=== PATIENT | female | born 1940 | race Caucasian/White ===

== ENCOUNTER → 2018-02-16 | Outpatient (CLI) | payer MEDICARE, OTHER ==
[~2018-02-16] MED LIST: Antivert25 MG PO; FURO40 PO; HUMULIN 70100 UNIT/1 SQ; K-Dur20 MEQ PO; LEVSOD125 PO; LOSA50 PO; MECL25 PO; METO50ER PO; MOTION RELIEF25 MG PO; POTA10T PO; VALS80 PO
== END | disposition home or self-care (01) ==
LOC: LAB 15:50 → LAB SHORT 15:50
DX: E11.621 Type 2 diabetes mellitus with foot ulcer (principal); L97.509 Non-pressure chronic ulcer of other part of unspecified foot with unspecified severity
CPT/HCPCS: 87070; 87075; 87077; 87186; 87205

== ENCOUNTER 2018-04-29 13:15 | Observation (INO) | payer MEDICARE, OTHER ==
[~2018-04-29] VITALS: Ht 160 cm; Wt 105.0 kg
[2018-04-29 14:00] LABS: BASOPHILS ABSOLUTE AUTO 0.05 K/mm3 (0.00-0.23); BASOPHILS PERCENT AUTO 1 % (0-2); EOSINOPHILS ABSOLUTE AUTO 0.35 K/mm3 (0.00-0.68); EOSINOPHILS PERCENT AUTO 4 % (0-6); Hematocrit 38.7 % (33.0-51.0); Hemoglobin 12.4 g/dL (11.5-16.0); IMMATURE GRAN ABSOLUTE AUTO 0.03 K/mm3 (0.00-0.10); IMMATURE GRAN PERCENT AUTO 0 % (0-1); LYMPHOCYTES ABSOLUTE AUTO 2.32 K/mm3 (0.84-5.20); LYMPHOCYTES PERCENT AUTO 25 % (21-46); MONOCYTES ABSOLUTE AUTO 0.97 K/mm3 (0.16-1.47); MONOCYTES PERCENT AUTO 11 % (4-13); Mean Corpuscular HGB 32.4 pg (26.0-34.0); Mean Corpuscular Volume 101 fL (80-100); NEUTROPHILS ABSOLUTE AUTO 5.48 K/mm3 (1.96-9.15); NEUTROPHILS PERCENT AUTO 60 % (41-73); Platelet Count 168 K/mm3 (150-400); RDW Coefficient Variation 13.6 % (11.7-14.2); RDW Standard Deviation 50.9 fL (35.1-46.3); Red Blood Cell Count 3.83 M/mm3 (3.80-5.20)
[2018-04-29 14:02] LABS: Mean Platelet Volume 14.5 fL (9.1-12.4)
[2018-04-29 14:47] LABS: Alanine Aminotransfer (ALT/SGP 16 U/L (12-78); Albumin, Blood 3.3 g/dL (3.4-5.0); Albumin/Globulin Ratio 0.9 (0.8-1.8); Alk Phos 41 U/L (50-136); Anion Gap 9 mmol/L (6-16); Aspartate Aminotrans (AST/SGOT 20 U/L (12-37); Bilirubin, Total 0.4 mg/dL (0.1-1.0); Blood Urea Nitrogen 75 mg/dL (8-24); Bun/Creatinine Ratio 40.1 (12.0-20.0); CO2, Blood 29 mmol/L (21-32); Calcium, Blood 8.7 mg/dL (8.5-10.1); Chloride, Blood 105 mmol/L (98-108); Creatinine, Blood 1.87 mg/dL (0.40-1.00); Globulin, Blood 3.7 g/dL (2.2-4.0); Glomerular Filtration Rate 28 (60-); Glucose, Blood 28 mg/dL (70-99); Sodium, Blood 143 mmol/L (136-145)
[2018-04-29 14:49] LABS: Troponin I <0.015 ng/mL (0.000-0.040)
[2018-04-30 05:08] LABS: Hematocrit 38.7 % (33.0-51.0); Hemoglobin 12.5 g/dL (11.5-16.0)
[2018-04-30 05:42] LABS: Bun/Creatinine Ratio 38.8 (12.0-20.0); Calcium, Blood 9.1 mg/dL (8.5-10.1); Creatinine, Blood 1.88 mg/dL (0.40-1.00); Potassium, Blood 4.3 mmol/L (3.5-5.5)
[2018-04-30] MEDS ORDERED: METO25ER PO (14:07)
== END 2018-04-30 15:05 | disposition home health service (06) ==
LOC: ER 13:15 → MEDS 13:16 → ENPENDDIS 04-30 13:55 → MEDS 04-30 15:05
PROVIDERS: Emergency Medicine; Nurse Practitioner Acute Care
DX: R55 Syncope and collapse (principal); E11.42 Type 2 diabetes mellitus with diabetic polyneuropathy; I12.9 Hypertensive chronic kidney disease with stage 1 through stage 4 chronic kidney disease, or unspecified chronic kidney disease; E11.22 Type 2 diabetes mellitus with diabetic chronic kidney disease; N18.4 Chronic kidney disease, stage 4 (severe); I25.10 Atherosclerotic heart disease of native coronary artery without angina pectoris; E03.9 Hypothyroidism, unspecified; E11.649 Type 2 diabetes mellitus with hypoglycemia without coma; Z79.4 Long term (current) use of insulin
CPT/HCPCS: 36415; 70450; 71046; 80048; 80053; 82607; 82746; 82947; 83036; 83735; 83880; 84443; 84484; 85014; 85018; 85025; 93005; 93010; 96374; 97161; 97165; 97535; 99285-25; G0378; G8978; G8979; G8980; G8987; G8988; J1815

== ENCOUNTER 2018-09-11 03:53 | Inpatient (IN) | payer MEDICARE, OTHER ==
[~2018-09-11] VITALS: Ht 157.5 cm; Wt 103.0 kg
[~2018-09-11 03:53] MED LIST changes: +METO25ER PO
[2018-09-11 04:21] LABS: Source, Urine Catheter
[2018-09-11 04:23] LABS: Bilirubin, Urine Neg (Neg); Blood, Urine Neg (Neg); Glucose Qualitative, Urine Neg (Neg); Ketones, Urine Neg (Neg); Leukocyte Esterase, Urine Neg (Neg); Nitrite, Urine Neg (Neg); Protein, Urine Neg (Neg); Specific Gravity, Urine 1.015 (1.003-1.022); Urobilinogen, Urine NORM (Normal)
[2018-09-11 04:24] LABS: BASOPHILS ABSOLUTE AUTO 0.04 K/mm3 (0.00-0.23); BASOPHILS PERCENT AUTO 1 % (0-2); EOSINOPHILS ABSOLUTE AUTO 0.28 K/mm3 (0.00-0.68); EOSINOPHILS PERCENT AUTO 4 % (0-6); Hematocrit 37.2 % (33.0-51.0); Hemoglobin 11.6 g/dL (11.5-16.0); IMMATURE GRAN ABSOLUTE AUTO 0.02 K/mm3 (0.00-0.10); IMMATURE GRAN PERCENT AUTO 0 % (0-1); LYMPHOCYTES ABSOLUTE AUTO 1.89 K/mm3 (0.84-5.20); LYMPHOCYTES PERCENT AUTO 28 % (21-46); MONOCYTES ABSOLUTE AUTO 0.77 K/mm3 (0.16-1.47); MONOCYTES PERCENT AUTO 11 % (4-13); Mean Corpuscular HGB 32.7 pg (26.0-34.0); Mean Corpuscular HGB Conc 31.2 g/dL (31.5-36.5); Mean Corpuscular Volume 105 fL (80-100); NEUTROPHILS ABSOLUTE AUTO 3.87 K/mm3 (1.96-9.15); NEUTROPHILS PERCENT AUTO 56 % (41-73); NRBC ABSOLUTE 0.02 K/mm3 (0.00-0.02); NRBC Auto 0.3 /100 WBC (0.0-0.2); Platelet Count 141 K/mm3 (150-400); RDW Coefficient Variation 14.6 % (11.7-14.2); RDW Standard Deviation 56.5 fL (35.1-46.3); Red Blood Cell Count 3.55 M/mm3 (3.80-5.20); White Blood Cell Count 6.87 K/mm3 (4.00-11.30)
[2018-09-11 04:34] LABS: Appearance, Urine Clear (Clear); Color, Urine Yellow (P-Yellow)
[2018-09-11 04:47] LABS: Free Thyroxine 1.14 ng/dL (0.70-1.60); Troponin I <0.015 ng/mL (0.000-0.040)
[2018-09-11 04:51] LABS: Triiodothyronine, Free 1.88 pg/mL (2.18-3.98)
[2018-09-11 04:53] LABS: Alanine Aminotransfer (ALT/SGP 26 U/L (12-78); Albumin, Blood 3.4 g/dL (3.4-5.0); Albumin/Globulin Ratio 0.9 (0.8-1.8); Alk Phos 58 U/L (50-136); Anion Gap 7 mmol/L (6-16); Aspartate Aminotrans (AST/SGOT 22 U/L (12-37); Bilirubin, Total 0.2 mg/dL (0.1-1.0); Blood Urea Nitrogen 115 mg/dL (8-24); Bun/Creatinine Ratio 47.9 (12.0-20.0); CO2, Blood 27 mmol/L (21-32); Calcium, Blood 8.5 mg/dL (8.5-10.1); Chloride, Blood 111 mmol/L (98-108); Globulin, Blood 3.9 g/dL (2.2-4.0); Glomerular Filtration Rate 21 (60-); Glucose, Blood 21 mg/dL (70-99); Potassium, Blood 5.2 mmol/L (3.5-5.5); Sodium, Blood 145 mmol/L (136-145); Total Protein, Blood 7.3 g/dL (6.4-8.2)
--- NOTE | 2018-09-11 12:53 | NUR ---
0835: PT TO ICU 1 FROM ER, CARE ASSUMED. 0900: ASSESSMENT COMPLETED, PT AWAKE, A&OX4, PLEASANT AND COOPERATIVE. LS CTA, HR SINUS MARIA DE JESUS 50'S, OTHER VSS, BT+, LAST BM EARLY THIS MORNING. PT HAS BRUISING TO LATERAL LLE AND LEFT HIP, SKIN TEAR TO LEFT FA IS DRESSED WITH GUAZE DRESSING AND COBAN FROM ER. PT STATES SHE GOT THE SKIN TEAR DURING HER FALL THIS MORNING. PT REPOSITIONED IN BED, FEET ELEVATED ON PILLOWS, DENIES C/O AT THIS TIME. D5 0.45NS INFUSING AT 100ML/HR PER ORDERS. 1000: PT MEDICATED WITH TYLENOL FOR LEFT FLANK/LOW BACK PAIN, STATES PAIN IS NEW ONSET SINCE FALL THIS MORNING. PT TOLERATED MEDICATIONS WELL, DENIES OTHER NEEDS. 1145: PT ASSISTED TO USE BEDPAN TO VOID, THEN REPOSITIONED IN BED. CBG 144. BRUISES AND WOUND TO LEFT FA DOCUMENTED, SEE PICTURES. SKIN TEAR TO LEFT FA RE-DRESSED WITH ABX OINTMENT, TELFA, KERLIX AND TAPE. PT ASSISTED TO SIT UP IN BED, IS WATCHING TV, REMAINS A&OX4 AND APPROPRIATE. 1200: PT EATING LUNCH, TOLERATING WELL, DENIES NEEDS.
--- NOTE | 2018-09-11 14:00 | NUR ---
Patient watching TV. Review of her needs and symptoms and advance care planning. Pt states he does not have headaches or dyspnea. She does have buzzing in ears frequently and poor blance at time. She walks with a walker and still drives but less active. She at on license of [facility] has trouble swallowing, moderate appetitie recent difficulties with loose stools. She states her glucose monitor does not work well and she chaecks it once a day. She feesl she often has low blood sugar. She has some hip and low back pain. Denies pain to feet. pt lives alone in her own home. She has a 14 year old dog and fears the dog will not last much longer. She used to volunteer with a literacy program and has stopped due to using walker more. She has two sons on [place] and calls twice a month. The other lives locally and minimal contact he has issues with drinking and has been in correction. She relies on her best friend across the street who cannot see her as much because her is sick with end stage cancer. She is independent in her ADLS. She denies financial stress, States she has minimal support but ok. We reviewed AD, POA and reyes and decision making. Theraputic onversation about volunteering for [employer] and and getting out more. We discussed briefly diabetic acare and reanal disease and startegies. Field Clinical Engineer consult planced to help with teaching and to see if she can get a new meter. We discussed future care and a stragic plan for eventually selling her house and going to live with more support and social care. He passed and she has been in the house since 1974. pt high risk for falls and decline and readmission. reviewed strategies for future and being proactive. pt was receptive. will follow up with AD and diabetic care.
--- NOTE | 2018-09-11 15:27 | NUR ---
1330: DR. GOODEN IN TO SEE PT, PT STATUS CHANGED TO MEDICAL. PALLIATIVE CARE AT BEDSIDE WITH PT. 1445: CARDIAC MONITORING DC'D, NS INFUSING PER ORDERS. PT RESTING IN BED WATCHING TV, DENIES NEEDS OR C/O AT THIS TIME. REMAINS ALERT AND ORIENTED X4. 1505: DR. LINDSEY CALLED FOR NEPHROLOGY CONSULT, NEW ORDERS RECIEVED.
--- NOTE | 2018-09-11 17:32 | NUR ---
1700: RENAL AND BLADDER US COMPLETED, US SHOWS 750ML IN BLADDER. PT UP TO BR, 250ML URINE OUT. DR. LINDSEY IN TO SEE PT, NEW ORDERS RECIEVED. 1730: BOUCHER INSERTED PER ORDERS, 700ML OUT. SECOND IV INSERTED FOR REPEATED OCCLUSIONS. PT SITTING UP IN BED EATING DINNER, REPORTS LEFT SIDE PAIN 10/10 WITH MOVMENT, MEDICATED WITH TYLENOL PER ORDERS, DENIES OTHER NEEDS AT THIS TIME.
[2018-09-11 17:59] LABS: Source, Urine Catheter
[2018-09-11 18:02] LABS: Bilirubin, Urine Neg (Neg); Blood, Urine Neg (Neg); Color, Urine Yellow (P-Yellow); Glucose Qualitative, Urine Neg (Neg); Ketones, Urine Neg (Neg); Leukocyte Esterase, Urine Neg (Neg); Nitrite, Urine Neg (Neg); Protein, Urine Neg (Neg); Urobilinogen, Urine NORM (Normal)
[2018-09-11 18:16] LABS: Appearance, Urine Clear (Clear)
--- NOTE | 2018-09-11 18:34 | NUR ---
183: PT FINISHED DINNER WITHOUT DIFFICULTY, APPETITE GOOD. BOUCHER PATENT AND DRAINING TO GRAVITY, GOOD OUTPUT. PT DENIES BLADDER FULLNESS AT THIS TIME. VSS, REPORT TO ONCOMING SHIFT.
--- NOTE | 2018-09-11 19:15 | NUR ---
ASSUMED PT CARE PT SITTING UP IN BED WATCHING T.V. CALL LIGHT IN REACH. BEDSIDE TABLE IN REACH. NS INFUSING AT 75MLS/HR VIA 20G IN RIGHT HAND. NO C/O PAIN OR DISCOMFORT. PT DOES NOT APPEAR TO BE IN ANY DISTRESS AT THIS TIME.
[2018-09-12 03:37] LABS: Hemoglobin 10.7 g/dL (11.5-16.0)
[2018-09-12 03:53] LABS: Magnesium, Blood 2.8 mg/dL (1.6-2.4)
[2018-09-12 04:06] LABS: Anion Gap 6 mmol/L (6-16); Blood Urea Nitrogen 93 mg/dL (8-24); Bun/Creatinine Ratio 45.8 (12.0-20.0); CO2, Blood 25 mmol/L (21-32); Calcium, Blood 8.4 mg/dL (8.5-10.1); Chloride, Blood 114 mmol/L (98-108); Creatinine, Blood 2.03 mg/dL (0.40-1.00); Glomerular Filtration Rate 25 (60-); Glucose, Blood 172 mg/dL (70-99); Phosphorus, Blood 4.4 mg/dL (2.5-4.9); Sodium, Blood 145 mmol/L (136-145)
--- NOTE | 2018-09-12 04:33 | NUR ---
EKG NEW ORDERS FOR STAT EKG D/T CRITICALLY ELEVATED POTASSIUM OF 6.0. DR. NATARAJAN TO COME EVALUATE EKG.
--- NOTE | 2018-09-12 05:16 | NUR ---
END OF SHIFT SUMMARY PT HAS BEEN PLEASANT AND COOPERATIVE T/O ENTIRE SHIFT. SHE HAS DECLINED REPOSITIONING EACH TIME IT WAS OFFERED; STATED "IT HURT TO TURN". PILLOWS PLACED FOR COMFORT UNDER EXTREMITIES. NS INFUSING VIA 20G TO RIGHT HAND AT 75MLS/HR. D/C'D 20G TO RIGHT AC SECONDARY TO IT INFILTRATING. CRITICAL LAB VALUE OF POTASSIUM 6.[address] NATARAJAN WHO ORDERED A STAT EKG; UPON F/U ON READING EKG WITH NO SIGNIFICANT CHANGES DR. NATARAJAN ORDERED ONE AMP OF D50 WITH 8 UNITS OF REGULAR INSULIN GIVEN IV. PT TOLERATED BOTH INJECTIONS WELL WITH NO C/O BURNING AT SITE. PT IS COMFORTABLE WITH NO C/O PAIN AT THIS TIME.
--- NOTE | 2018-09-12 09:46 | NUR ---
0715: CARE ASSUMED, ASSESSMENT COMPLETED. CBG 113, HR IRREGULAR, LS CTA, BT+, EDEMA TO LE'S IMPROVING. PT A&OX4, APPROPRIATE AND PLEASANT. BOUCHER PATENT AND DRAINING TO GRAVITY. LE'S ELEVATED ON PILLOW, NS INFUSING 75ML/HR PER ORDERS. PT REPORTS LEFT LOWER BACK, LEFT SIDE OF TORSO, AND LEFT JAW PAIN 8/10, DENIES CHEST PAIN/PRESSURE, OR SOB. STATES JAW PAIN ONLY PRESENT WHEN SHE OPENS HER MOUTH WIDE, BELIEVES SHE HIT HER JAW WHEN SHE FELL. DR GOODEN AT BEDSIDE TO ASSESS. TYLENOL ADMINISTERED FOR PAIN. 0900: PT FINISHED BREAKFAST WITHOUT DIFFICULTY, AM MEDS ADMINISTERED. PT ASSISTED INTO CHAIR, DENIES NEEDS AT THIS TIME. 0940: POTASSIUM RESULT CALLED TO DR. GOODEN, NEW ORDERS RECEIVED. PT REMAINS UP IN CHAIR TALKING ON PHONE.
--- NOTE | 2018-09-12 10:37 | NUR ---
1035: DR. LINDSEY AWARE OF POTASSIUM LEVEL AND KAYEXELATE ORDER, NO NEW ORDERS RECEIVED AT THIS TIME. KAYEXELATE GIVEN, BED BATH COMPLETED, REPORT CALLED TO CANDIE, MEDICAL FLOOR NURSE. PT TO ROOM 356 AT THIS TIME VIA WC WITH NO C/O OR DIFFICULTIES.
--- NOTE | 2018-09-12 15:56 | NUR ---
POTASSIUM READ BACK FROM LAB AT A CRITICAL HIGH. PATIENT CURRENTLY 6.[address] GOODEN HAS BEEN NOTIFIED AND SO HAS DR. LINDSEY. DR. GOODEN HAD ORDERED THE SECOND POTASSIUM THIS AFTERNOON POST DOSE OF KAYEXALATE. PATIENT HAS NOT HAD A BOWEL MOVEMENT SINCE SHE HAS BEEN BROUGHT TO THE FLOOR. THE PATIENT IS ALERT AND ORIENTED. AWAITING THE LAB TO DRAW PLASMA POTASSIUM FOR THE PATIENT BEFORE GIVING KAYEXALATE. WILL MONITOR FOR CHANGES.
--- NOTE | 2018-09-12 18:29 | NUR ---
SHIFT SUMMARY PATIENT FROM THE ICU TODAY. SHE IS IPA. NO PAIN MINUS CHRONIC PAINS. SHE HAS GOTTEN UP WITH PHYSICAL THERAPY. SHE HAD A CRITICAL POTASSIUM THIS AM PRIOR TO TRANSFER AT 6.0. SHE WAS GIVEN A DOSE OF KAYEXALATE UNSURE OF THE OUTCOME. POTASSIUM WAS RECHECKED AND WAS 5.8. THIRD POTASSIUM SCHEDULED FOR 1400. THIS POTASSIUM CAME OUT A CRITICAL HIGH WELL AT 6.0. DR. LINDSEY AND DR. GEORGE WERE NOTIFIED. PATIENT HAD STAT PLASMA POTASSIUM DRAWN WHICH CAME BACK A CRITICAL HIGH OF 6.3 AND WAS GIVEN 30G KAYEXALATE PER DR. GOODEN, AND 1 AMP D50, 10 UNITS IV INSULIN PUSH, AND [address] LINDSEY[address] BOTH DOCTORS ARE AWARE OF THE FULL TREATMENTS GIVEN. PATIENT HAS TAKEN KAYEXALATE, ALL TREATMENTS HAVE BEEN GIVEN. STAT POTASSIUM WAS DRAWN AT 1830, AWAITING RESULTS AT THIS TIME. WILL CALL DR. LINDSEY WITH RESULTS. AWAITING PATIENT CONCERNS. PATIENT ALERT AND ORIENTED, NO ACUTE CHANGES WITH PATIENT SYMPTOMS.
[2018-09-12 18:49] LABS: Bun/Creatinine Ratio 39.1 (12.0-20.0); Calcium, Blood 8.5 mg/dL (8.5-10.1); Creatinine, Blood 2.07 mg/dL (0.40-1.00); Potassium, Blood 5.2 mmol/L (3.5-5.5)
--- NOTE | 2018-09-13 05:11 | NUR ---
SHIFT SUMMARY A/O X4, ABLE TO MAKE NEEDS KNOWN. COOPERATIVE WITH CARE. ANSWERS QUESTIONS APPROPRIATELY. UP TO CHAIR FOR MEALS. AMBULATES WITH 1 ASSIST. C/O PAIN/DISCOMFORT RATED 8/10 TO L SIDE SECONDARY TO FALL AT HOME; MEDICATED PER EMAR. APPEARED TO REST MUCH OF NIGHT. VSS/AFEBRILE. NO ACUTE CHANGES NOTED OVERNIGHT. BED IN LOWEST POSITION. CALL LIGHT AND BELONGINGS WITHIN REACH. WCTM. REPORT TO ONCOMING RN.
[2018-09-13 05:18] LABS: Hematocrit 33.4 % (33.0-51.0); Hemoglobin 10.4 g/dL (11.5-16.0)
[2018-09-13 05:38] LABS: Anion Gap 6 mmol/L (6-16); Blood Urea Nitrogen 78 mg/dL (8-24); Bun/Creatinine Ratio 41.5 (12.0-20.0); CO2, Blood 25 mmol/L (21-32); Calcium, Blood 8.2 mg/dL (8.5-10.1); Chloride, Blood 114 mmol/L (98-108); Creatinine, Blood 1.88 mg/dL (0.40-1.00); Glomerular Filtration Rate 27 (60-); Glucose, Blood 197 mg/dL (70-99); Magnesium, Blood 2.6 mg/dL (1.6-2.4); Phosphorus, Blood 3.7 mg/dL (2.5-4.9); Potassium, Blood 5.6 mmol/L (3.5-5.5); Sodium, Blood 145 mmol/L (136-145)
--- NOTE | 2018-09-13 07:28 | NUR ---
PER VERBAL ORDERS FROM DR LINDSEY 40 MG IV LASIX GIVEN AND IVF RATE DECREASED TO 50 ML/HR. IVF BAG NOT CHANGED AT THIS TIME, CURRENT IVF CONTINUED WITH THE DECREASED RATE.
--- NOTE | 2018-09-13 17:47 | NUR ---
NO ACUTE CHANGES. PT WITH SERIAL POTASSIUM LABS Q6H X6, SEE LAB RESULTS IN CHART. NO C/O PAIN/DISCOMFORT OR N/V. WILL CONTINUE TO MONITOR AND REPORT TO ONCOMING RN.
--- NOTE | 2018-09-14 00:03 | NUR ---
09/13/181943 PT LYING IN BED, REPORTS L SIDE PAIN, REQUESTED AND RECIEVED TYLENOL, WILL EVAL FOR EFFECT. PT HAS TREMORS IN HANDS THAT SHE STATES IS NORMAL FOR HER. NO OTHER APPARENT SIGNS OF DISTRESS. CALL LIGHT IS IN REACH.
--- NOTE | 2018-09-14 01:12 | NUR ---
0000 PT LYING IN BED, EYES CLOSED, APPEARS TO BE RESTING. BREATHING IS EVEN, UNLABORED. NO APPARENT SIGNS OF DISTRESS. CALL LIGHT IS IN REACH.
--- NOTE | 2018-09-14 02:01 | NUR ---
PT LYING IN BED, AWAKE, NO APPARENT SIGNS OF DISTRESS. CALL LIGHT IS IN REACH.
--- NOTE | 2018-09-14 03:37 | NUR ---
PT LYING IN BED, EYES CLOSED, APPEARS TO BE RESTING. BREATHING IS EVEN, UNLABORED. NO APPARENT SIGNS OF DISTRESS. CALL LIGHT IS IN REACH.
--- NOTE | 2018-09-14 04:10 | NUR ---
PT IS AAO X 4, ON RA. REPORTS PAIN IN L SIDE, GOT TYLENOL AT HS. TELE NSR WITH OCC PVC'S AND 1ST DEGREE AV BLOCK. BS WAS 237. SANDER. [facility] [place] ARM. KPAD IN ROOM, MAY HAVE ICE PACK IF NEEDED.
[2018-09-14 04:46] LABS: Hematocrit 32.3 % (33.0-51.0); Hemoglobin 10.2 g/dL (11.5-16.0)
[2018-09-14 04:57] LABS: Albumin, Blood 2.9 g/dL (3.4-5.0); Anion Gap 7 mmol/L (6-16); Blood Urea Nitrogen 64 mg/dL (8-24); Bun/Creatinine Ratio 33.7 (12.0-20.0); CO2, Blood 26 mmol/L (21-32); Calcium, Blood 8.4 mg/dL (8.5-10.1); Chloride, Blood 115 mmol/L (98-108); Glomerular Filtration Rate 27 (60-); Glucose, Blood 203 mg/dL (70-99); Magnesium, Blood 2.3 mg/dL (1.6-2.4); Phosphorus, Blood 3.5 mg/dL (2.5-4.9); Potassium, Blood 4.8 mmol/L (3.5-5.5); Sodium, Blood 148 mmol/L (136-145)
[2018-09-14 06:48] LABS: Uric Acid, Blood 7.8 mg/dL (2.6-6.0)
--- NOTE | 2018-09-14 07:31 | NUR ---
0642 PT LYING IN BED, EYES CLOSED, APPEARS TO BE RESTING. BREATHING IS EVEN, UNLABORED. NO APPARENT SIGNS OF DISTRESS. CALL LIGHT IS IN REACH. NO OTHER CHANGES THIS SHIFT.
--- NOTE | 2018-09-14 18:25 | NUR ---
SUMMARY- PT ALERT AND ORIENTED. SAT UP IN CHAIR MOST OF THE DAY, TOLERATING FOOD AND FLUIDS. GIVEN SENEKOT IN ADDITION TO MIRALAX, LAST BM BEFORE DC 09/11. TELE REVEALS SR WITH 1 AVB AND OCC PVC, ALSO A NEW PAUSE PRESENT, NOT AFFECTING THE RATE. NOTIFIED DR GOODEN WHO VISUALIZED TELE PRINTOUT 1050. NO INTERVENTIONS FOR THIS CHANGE. PT DENIES PAIN, AND NEEDED TO PRN'S. IVF INFUSING. BOUCHER DRAINING MED CLEAR YELLOW. WILL REPORT TO NIGHTS.
[2018-09-15 04:52] LABS: Hematocrit 31.6 % (33.0-51.0); Hemoglobin 9.9 g/dL (11.5-16.0)
[2018-09-15 05:14] LABS: Albumin, Blood 2.7 g/dL (3.4-5.0); Anion Gap 5 mmol/L (6-16); Blood Urea Nitrogen 53 mg/dL (8-24); Bun/Creatinine Ratio 30.6 (12.0-20.0); CO2, Blood 28 mmol/L (21-32); Calcium, Blood 8.5 mg/dL (8.5-10.1); Chloride, Blood 114 mmol/L (98-108); Creatinine, Blood 1.73 mg/dL (0.40-1.00); Glomerular Filtration Rate 30 (60-); Glucose, Blood 173 mg/dL (70-99); Magnesium, Blood 2.4 mg/dL (1.6-2.4); Phosphorus, Blood 2.9 mg/dL (2.5-4.9); Potassium, Blood 4.3 mmol/L (3.5-5.5); Sodium, Blood 147 mmol/L (136-145)
--- NOTE | 2018-09-15 06:53 | NUR ---
LYING IN SEMI FOWLERS WITH EYES CLOSED. AAO X3, DELAYED RESPONSES NOTED. DANIELSON, FOLLOWS ALL COMMANDS. HAD LARGE BM THIS SHIFT. LANTUS STARTED LAST PM, TOLERATED WELL. DENIES PAIN, DISCOMFORT, OR FURTHER NEEDS AT THIS TIME. SAFETY MEASURES IN PLACE.
--- NOTE | 2018-09-15 18:23 | NUR ---
SHIFT SUMMARY BOUCHER REMOVED THIS MORNING APPROX 1000. HAS VOIDED SMALL AMOUNTS ONLY SINCE. WILL BLADDER SCAN AFTER SUPPER AND REASSESS IF BLADDER NEEDS DRAINING AGAIN. SPOKE WITH MD AND RECEIVED OK FOR IN AND OUT CATH ONLY IF 450 OF URINE IN BLADDER. 1 PERSON MOD ASSIST WITH TRANSFER [place] [facility] [place] [facility]. BLOOD SUGARS HAVE REMAINED STABLE TODAY AND ONLY REQUIRED COVERAGE FOR SUPPER. REPORTED A "STITCH IN MY LEFT SIDE WHEN I MOVE OR TAKE A DEEP BREATH". GAVE HER TYLENOL AND ENCOURAGED COUGH AND DEEP BREATHING. IS GIVEN WITH EDUCATION.
--- NOTE | 2018-09-15 23:29 | NUR ---
PATIENT POST BLADDER SCAN= 4mL AFTER 400mL VOID. CALL LIGHT IN REACH.
--- NOTE | 2018-09-16 04:27 | NUR ---
SHIFT SUMMARY PATIENT HAD NO ACUTE CHANGES OBSERVED DURING THE SHIFT. BOUCHER DC'D IN MORNING. PATIENT POST RESIDUAL BLADDER SCAN WAS 4 mL AFTER 400mL VOID. AXOX 4 AND ONE PERSON ASSIST TO BSC W/FWW. PIV REMAINS INTACT. MONUMENT ERECTOR REPORTS NSR 83 W/FIRST DEGREE AND PVC. CBG 298. VSS/AFEBRILE. DENIES PAIN, SOB, AND N/V. CALL LIGHT IN REACH. BED IN LOWEST POSITION. WILL CONTINUE TO MONITOR UNTIL DAY SHIFT NURSE ASSUMES CARE.
[2018-09-16 05:23] LABS: Hemoglobin 10.3 g/dL (11.5-16.0)
[2018-09-16 05:45] LABS: Albumin, Blood 2.8 g/dL (3.4-5.0); Anion Gap 4 mmol/L (6-16); Blood Urea Nitrogen 46 mg/dL (8-24); Bun/Creatinine Ratio 31.3 (12.0-20.0); CO2, Blood 29 mmol/L (21-32); Calcium, Blood 8.8 mg/dL (8.5-10.1); Chloride, Blood 114 mmol/L (98-108); Creatinine, Blood 1.47 mg/dL (0.40-1.00); Glomerular Filtration Rate 36 (60-); Glucose, Blood 188 mg/dL (70-99); Magnesium, Blood 2.5 mg/dL (1.6-2.4); Phosphorus, Blood 2.8 mg/dL (2.5-4.9); Potassium, Blood 4.3 mmol/L (3.5-5.5); Sodium, Blood 147 mmol/L (136-145)
--- NOTE | 2018-09-16 15:55 | NUR ---
DISCHARGE INSTRUCTIONS COMPLETED BY FOR TRANSFER TO [facility]. HAD HOME 02 EVAL AND NOTED TO BE DYSPNEIC AND DESATING AFTER EXERTION. RECOMMENDED O2 WTIH EXERTION. CALLED REPORT TO DAVID AT [facility]. CLIPPER MACHINE OPERATOR HERE AT 1445, TO CURB VIA W/C.
[2018-09-16] MEDS ORDERED: Colace100 MG PO (16:47)
[2018-09-16] MEDS ORDERED: INSULANPEN SC (16:47)
[2018-09-16] MEDS ORDERED: ACET325S PO (16:47)
[2018-09-16] MEDS ORDERED: Humalog100 UNIT/3 SC (16:48)
[2018-09-16] MEDS ORDERED: GAVILAX17 GM PO (16:49)
[2018-09-16] MEDS ORDERED: SENN187 PO (16:49)
[2018-09-16] MEDS ORDERED: TRAM50 PO (16:50)
[2018-09-16] MEDS ORDERED: TAMS.4ER PO (16:50)
== END 2018-09-16 14:53 | DRG 698 ==
LOC: ER 03:53 → ICUE 03:54 → ICUW 03:54 → ICUE 06:54 → MEDS 08:30 → ICUE 13:23 → MEDS 09-12 10:42
PROVIDERS: Emergency Medicine; Internal Medicine; Internal Medicine Nephrology; ADMIT Hospitalist
DX: E11.22 Type 2 diabetes mellitus with diabetic chronic kidney disease (principal); G93.41 Metabolic encephalopathy; E87.0 Hyperosmolality and hypernatremia; E11.649 Type 2 diabetes mellitus with hypoglycemia without coma; N17.9 Acute kidney failure, unspecified; E86.9 Volume depletion, unspecified; E87.5 Hyperkalemia; E11.42 Type 2 diabetes mellitus with diabetic polyneuropathy; E88.09 Other disorders of plasma-protein metabolism, not elsewhere classified; E87.70 Fluid overload, unspecified; E86.0 Dehydration; N18.4 Chronic kidney disease, stage 4 (severe); R00.1 Bradycardia, unspecified; D64.9 Anemia, unspecified; I12.9 Hypertensive chronic kidney disease with stage 1 through stage 4 chronic kidney disease, or unspecified chronic kidney disease; W19.XXXA Unspecified fall, initial encounter; R68.0 Hypothermia, not associated with low environmental temperature; N25.81 Secondary hyperparathyroidism of renal origin; I25.10 Atherosclerotic heart disease of native coronary artery without angina pectoris; R33.9 Retention of urine, unspecified; E66.9 Obesity, unspecified; Y93.9 Activity, unspecified; Y92.002 Bathroom of unspecified non-institutional (private) residence as the place of occurrence of the external cause; R55 Syncope and collapse; M54.9 Dorsalgia, unspecified; I87.2 Venous insufficiency (chronic) (peripheral); R26.81 Unsteadiness on feet; R29.6 Repeated falls; R60.0 Localized edema; Z95.1 Presence of aortocoronary bypass graft; Z79.899 Other long term (current) drug therapy; Z79.4 Long term (current) use of insulin; Z68.30 Body mass index [BMI] 30.0-30.9, adult; Z91.81 History of falling
CPT/HCPCS: 36415; 51702; 71046; 76770; 80048; 80053; 80069; 81003; 82550; 82947; 83036; 83735; 84132; 84439; 84443; 84481; 84484; 84550; 85014; 85018; 85025; 86038; 93005; 93010; 94660; 96361; 96372; 96374; 96376; 97110; 97116; 97162; 97530; 99285-25; G0378; G8978; G8979; J0881; J1644; J1815; J1940; J7030; J7042; P9612